=== PATIENT | female | born 1955 | race Hispanic/Latino ===

== ENCOUNTER 2016-07-28 11:52 | Day surgery (SDC) | payer BC ==
[~2016-07-28 11:52] MED LIST: IOPIDINE OD ONE; MYDRIACYL 1% OD ONE; NEOFRIN OD ONE
[2016-07-28] MEDS ORDERED: IOPIDINE OD ONE (12:26)
[2016-07-28] MEDS ORDERED: NEOFRIN OD ONE (12:26)
[2016-07-28] MEDS ORDERED: MYDRIACYL 1% OD ONE (12:26)
[2016-07-28 12:35] VITALS: BP 120/58
== END 2016-07-28 11:53 | disposition home or self-care (01) ==
LOC: OR 11:52
PROVIDERS: ATTEND Specialist
DX: H26.491 Other secondary cataract, right eye (principal); I10 Essential (primary) hypertension; J44.9 Chronic obstructive pulmonary disease, unspecified; G47.33 Obstructive sleep apnea (adult) (pediatric); Z87.891 Personal history of nicotine dependence; Z98.41 Cataract extraction status, right eye; Z98.42 Cataract extraction status, left eye; Z90.49 Acquired absence of other specified parts of digestive tract; Z98.890 Other specified postprocedural states